=== PATIENT | female | born 1965 | race Caucasian/White ===

== ENCOUNTER 2023-12-22 11:56 | Emergency (ER) | payer BC, SELFPAY ==
[2023-12-22 11:57] VITALS: BP 152/96
[2023-12-22 13:30] LABS: % Basophils 0.2 % (0-2); % Eosinophils 0.1 % (0-6); % Immature Granulocytes 0.2 % (0-0.5); % Lymphocytes 18.7 % (20.5-51.1); % Monocytes 6.3 % (1.7-9.3); % Neutrophils 74.5 % (42.2-75.2); Absolute Lymphocytes 1.7 10^3/uL (1.2-3.4); Absolute Monocytes 0.6 10^3/uL (0.1-0.6); Absolute Neutrophils 6.6 10^3/uL (1.4-6.5); Hematocrit 44.9 % (37.0-47.0); Hemoglobin 15.1 g/dL (12.0-16.0); Mean Corp Hgb Conc. 33.6 g/dL (33.0-37.0); Mean Corpuscular Hgb 28.9 pg (27.0-31.0); Mean Platelet Volume 10.9 fL (7.4-10.4); Nucleated Red Blood Cells % 0 %; Platelet Count 259 10^3/uL (130-400); Red Blood Cell Count 5.22 10^6/uL (4.20-5.40); Red Cell Dist. Width 13.4 % (11.5-14.5); White Blood Cell Count 8.9 10^3/uL (4.8-10.8)
[2023-12-22] MEDS: DUONEB 3 ML INH (13:30)
[2023-12-22 13:43] LABS: ALT (SGPT) 22 U/L (0-35); AST (SGOT) 25 U/L (14-36); Albumin 4.1 g/dl (3.5-5.0); Alkaline Phosphatase 90 U/L (38-126); Blood Urea Nitrogen 18 mg/dl (7-17); Carbon Dioxide 24 mmol/L (22-30); Chloride 104 mmol/L (98-107); Glucose 111 mg/dl (70-99); Potassium 3.9 mmol/L (3.5-5.1); Sodium 138 mmol/L (135-145); Total Bilirubin 0.8 mg/dl (0.2-1.3); Total Protein 7.3 g/dl (6.3-8.2); eGFR > 60.00
--- NOTE | 2023-12-22 14:49 | ED.GENMED ---
History of Present Illness
General
Chief Complaint: Breathing Problem
Source: patient
Exam Limitations: none
Time Seen by Provider: 12/22/23 12:28
Nursing documentation reviewed up to this point in time: agreed with
Travel History
Have you had any contact with someone who has COVID-19?: No
Do you have any symptoms of coronavirus? Fever > 100 degrees, chills, cough, shortness of breath, sore throat, loss of taste or smell, muscle aches, or headache?: Yes
Symptoms:: shortness of breath
History of Present Illness
History of Present Illness:
58-year-old female presenting to the emergency department today with concerns of ongoing cough. Yesterday was told to go to the ER for further assessment she with the patient for some Vistaril and had an x-ray 3 days ago that showed potential
pneumonia had a repeated x-ray without significant change she has been taking azithromycin and Augmentin and was started on steroids yesterday. Denies any chest pain has been able to ambulate without significant shortness of breath no coughing up
of blood. No significant fevers. Has had some nasal congestion sore throat.
Review of Systems
Review of Systems
Allergies reviewed?: Yes
All Other Systems: ROS reviewed and negative except as documented in HPI and ROS
Phy Exam
Physical Exam
Physical Exam:
GENERAL: Alert , in no apparent distress
EYE: pupils equal and reactive
NECK: Supple, no significant adenopathy.
ENT: o/p clr, mmm.
CARDIAC: Regular rate and rhythm .
LUNGS: Clear breath sounds bilaterally, no acute respiratory distress, no wheezes/rales/rhonchi
ABDOMEN: Soft, without focal tenderness, no r/g, no cvat
NEUROLOGICAL: Alert and oriented, no focal neuro deficits
SKIN: Warm and dry, skin intact.
MUSCULOSKELETAL: No edema, well perfused.
PSYCH: Normal and appropriate interaction.
Scores
Heart Failure Risk
Heart Failure Risk Score: Not Applicable
Course
Orders/Labs/Results
Orders:
Orders
12/22/23 13:20
Complete Blood Count/With Diff Urgent
Comprehensive Metabolic Panel Urgent
12/22/23 13:29
Ipratropium/Albuterol Sulfate [Duoneb] 3 ml .ROUTE .STK-MED ONE
12/22/23 13:30
Ipratropium/Albuterol Sulfate [Duoneb] 3 ml INH R NOW ONE
Abnormal Lab Results
12/22/23
13:20
MPV 10.9 H fL
(7.4-10.4)
Absolute Neuts (auto) 6.6 H 10^3/uL
(1.4-6.5)
Lymphocytes % 18.7 L %
(20.5-51.1)
BUN 18 H mg/dl
(7-17)
Glucose 111 H mg/dl
(70-99)
12/22/23 13:20
12/22/23 13:20
Vital Signs
Initial and Last Documented VS:
Initial Vital Signs
Temp Pulse Resp BP Pulse Ox
97.9 F 95 16 152/96 96
12/22/23 11:57 12/22/23 11:57 12/22/23 11:57 12/22/23 11:57 12/22/23 11:57
Last Documented Vital Signs
Temp Pulse Resp BP Pulse Ox
97.9 F 74 17 152/96 91
12/22/23 11:57 12/22/23 14:30 12/22/23 14:30 12/22/23 11:57 12/22/23 14:30
MDM/Problems Addressed
MDM/Problems Addressed:
58-year-old female presenting to the emergency department today with concerns of pneumonia diagnosed a few days ago by x-ray had a repeated x-ray yesterday that did not improve has been on antibiotics and started on steroids yesterday. Upon arrival
blood pressure mildly elevated otherwise vital signs are normal afebrile normal heart rate labs unremarkable no white count lungs are clear patient well-appearing was ambulated without worsening of pulse no evidence of worsening of pneumonia plan
for ongoing treatment return precautions were given.
*Critical Care Note
Total Time (30-74mins, 75-104mins- exclusive of procedures): Not Applicable
ED Attending Note
-
Portions of this chart may have been created with voice recognition software.� Occasional wrong word or��sound alike� substitutions may have occurred due to the inherent limitations of voice recognition software.
Discharge Plan
Departure
Patient Disposition: Home (Routine Discharge)
Date of Disposition: 12/22/23
Time of Disposition: 14:49
Patient with high blood pressure during this ER visit?: No
Condition: Good
Covid-19: Not Applicable
Discharge Problem:
Cough
Instructions: Cough, Adult ED
Prescriptions:
No Action
azithromycin 250 mg Tablet
0 mg PO .COMPLEX
Patient Comments:
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
Rx Instructions:
For 250 mg dose pack: take 500 mg today (day 1), then 250 mg for 4 days (days 2-5)
benzonatate 100 mg Capsule
100 mg PO TIDPRN PRN (Reason: cough)
methylprednisolone [Medrol (Glenn)] 4 mg Tablets,Dose Pack
0 mg PO PER PKG DIR
Patient Comments:
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
amoxicillin-pot clavulanate [Augmentin] 875-125 mg Tablet
1 tab PO BID
Patient Comments:
patient roll picker on 12/19/23
omeprazole 20 mg Tablet,Delayed Release (Dr/Ec)
20 mg PO DAILY
Referrals:
NONE,* [Family Provider] -
Activity Restrictions/Additional Instructions:
You came to the emergency department today with concerns of ongoing cough. Please continue your prescribed medications and return for any worsening symptoms.
Interventions
Interventions:
*Risk Screen - Suicide Last Done: 12/22/23 13:10
*General Assessment Last Done: 12/22/23 13:10
*Neglect/Abuse Screening Last Done: 12/22/23 13:10
ED- Fall Risk Assessment Last Done: 12/22/23 15:10
*Nursing Disposition Last Done: 12/22/23 15:10
ED- Cardiac Assessment Last Done: 12/22/23 13:10
ED- Pulmonary Assessment Last Done: 12/22/23 13:10
Discharge Date and Time
Discharge Date/Time: 12/22/23 15:12
Print Language: MACEDONIAN
== END 2023-12-22 15:12 | disposition home or self-care (01) ==
LOC: EMR 11:56
PROVIDERS: Physician Assistant; EMERGENCY PHYSICIAN Emergency Medicine
DX: R05.9 Cough, unspecified (principal)
CPT/HCPCS: 99283; 94640; 80053; 85025